=== PATIENT | female | born 1985 | race Caucasian/White ===

== ENCOUNTER → 2024-05-20 12:56 | Outpatient (REF) | payer BC, SELFPAY | LOC: HWRAD 12:56 | PROVIDERS: ATTENDING PHYSICIAN Nurse Practitioner Family | DX: N93.9 Abnormal uterine and vaginal bleeding, unspecified (principal) | CPT/HCPCS: 76830; 76856 ==

== ENCOUNTER → 2024-06-19 10:23 | Outpatient (REF) | payer BC, SELFPAY | LOC: HWRAD 10:23 | PROVIDERS: ATTENDING PHYSICIAN Nurse Practitioner Family | DX: N93.9 Abnormal uterine and vaginal bleeding, unspecified (principal) | CPT/HCPCS: 76830; 76856 ==

== ENCOUNTER 2024-07-21 06:26 | Day surgery (SDC) | payer BC, SELFPAY ==
[2024-07-16 11:01] LABS: % Basophils 0.5 % (0-2); % Eosinophils 2.7 % (0-6); % Immature Granulocytes 0.5 % (0-0.5); % Monocytes 7.8 % (1.7-9.3); % Neutrophils 55.5 % (42.2-75.2); Absolute Eosinophils 0.2 10^3/uL (0-0.7); Absolute Lymphocytes 2.2 10^3/uL (1.2-3.4); Absolute Monocytes 0.5 10^3/uL (0.1-0.6); Absolute Neutrophils 3.6 10^3/uL (1.4-6.5); Hematocrit 38.9 % (37.0-47.0); Hemoglobin 13.6 g/dL (12.0-16.0); Mean Corpuscular Hgb 30.2 pg (27.0-31.0); Mean Corpuscular Volume 86.3 fL (81.0-99.0); Mean Platelet Volume 10.7 fL (7.4-10.4); Nucleated Red Blood Cells % 0 %; Platelet Count 232 10^3/uL (130-400); Red Blood Cell Count 4.51 10^6/uL (4.20-5.40); Red Cell Dist. Width 12.1 % (11.5-14.5); White Blood Cell Count 6.6 10^3/uL (4.8-10.8)
[2024-07-16 11:28] LABS: Blood Urea Nitrogen 14 mg/dl (7-17); Calcium 9.6 mg/dl (8.4-10.2); Carbon Dioxide 25 mmol/L (22-30); Chloride 104 mmol/L (98-107); Glucose 95 mg/dl (70-99); Potassium 4.9 mmol/L (3.5-5.1); Sodium 139 mmol/L (135-145); eGFR > 60.00
[2024-07-16 11:42] LABS: Beta HCG Quantitative < 2.39 mIU/ml
[2024-07-21 13:23] VITALS: BMI 27.7
[2024-07-21 13:25] VITALS: BMI 27.7
[2024-07-21 13:26] VITALS: BP 128/88
[2024-07-21] MEDS: TYLENOL 1000 MG PO (13:30)
[2024-07-21] MEDS: NEURONTIN 300 MG PO (13:30)
[2024-07-21] MEDS: NORMOSOL-R/PLASMALYTE-A 1000 IV (13:55)
[2024-07-21 16:22] VITALS: BP 112/71; BP_SYST 12
[2024-07-21 16:37] VITALS: BP 114/79; BP_SYST 14
[2024-07-21 16:52] VITALS: BP 117/67; BP_SYST 16
[2024-07-21 16:55] VITALS: BP 112/80
[2024-07-21] MEDS: MOTRIN 600 MG PO (17:22)
[2024-07-21 17:30] VITALS: BP 128/83
== END 2024-07-21 17:50 | disposition home or self-care (01) ==
LOC: SDS 06:26
PROVIDERS: ATTENDING PHYSICIAN Obstetrics & Gynecology
DX: D25.0 Submucous leiomyoma of uterus (principal); N93.8 Other specified abnormal uterine and vaginal bleeding; F12.90 Cannabis use, unspecified, uncomplicated
CPT/HCPCS: 58561; 88305; 36415; 80048; 84702; 85025; 86850; 86900; 86901

== ENCOUNTER → 2025-02-04 09:58 | Outpatient (REF) | payer BC, SELFPAY | LOC: HWRAD 09:58 | PROVIDERS: ATTENDING PHYSICIAN Nurse Practitioner Family | DX: N83.209 Unspecified ovarian cyst, unspecified side (principal) | CPT/HCPCS: 76830; 76856 ==

== ENCOUNTER 2025-06-04 15:16 | Emergency (ER) | payer BC, SELFPAY ==
[2025-06-04 15:17] VITALS: BP 131/90
[2025-06-04 15:46] LABS: Hematocrit 39.9 % (37.0-47.0); Hemoglobin 13.8 g/dL (12.0-16.0); Mean Corp Hgb Conc. 34.6 g/dL (33.0-37.0); Mean Corpuscular Volume 85.4 fL (81.0-99.0); Nucleated Red Blood Cells % 0 %; Platelet Count 215 10^3/uL (130-400); Red Cell Dist. Width 12.0 % (11.5-14.5)
[2025-06-04 15:47] LABS: Urine Character Clear (Clear)
[2025-06-04 16:01] LABS: Urine Squamous Cell >30 /LPF (Few)
[2025-06-04 16:03] LABS: Urine White Cell 0-2 /HPF (0-5)
[2025-06-04 16:37] VITALS: BMI 27.4
[2025-06-04 16:39] VITALS: BP 122/90
[2025-06-04 17:08] LABS: HCG, Serum Qualitative Screen Negative
[2025-06-04 17:18] LABS: ALT (SGPT) 13 U/L (0-35); AST (SGOT) 22 U/L (14-36); Albumin 4.4 g/dl (3.5-5.0); Alkaline Phosphatase 56 U/L (38-126); Blood Urea Nitrogen 14 mg/dl (7-17); Calcium 9.8 mg/dl (8.4-10.2); Carbon Dioxide 28 mmol/L (22-30); Chloride 106 mmol/L (98-107); Estimated Creatinine Clearance 93 ml/min; Glucose 114 mg/dl (70-99); Lipase 117 U/L (23-300); Potassium 4.8 mmol/L (3.5-5.1); Sodium 137 mmol/L (135-145); Total Protein 7.1 g/dl (6.3-8.2); eGFR > 60.00
[2025-06-04 17:42] VITALS: BP 135/93
[2025-06-04 18:52] VITALS: BP 112/84
--- NOTE | 2025-06-04 19:05 | ED.GENMED ---
History of Present Illness
General
Chief Complaint: Abdominal Pain
Time Seen by Provider: 06/04/25 16:33
History of Present Illness
History of Present Illness:
40-year-old female presents the emergency department for evaluation of intermittent upper abdominal pain for the past several weeks. No obvious provoking or palliating factors. Episodes of pain last for several minutes and are severe before
improving. Has been able to eat without difficulty. Does not take any NSAIDs routinely and denies tobacco or frequent alcohol use. No prior abdominal surgical history. Has a scheduled GI appointment next week
Review of Systems
Review of Systems
Allergies reviewed?: Yes
All Other Systems: ROS reviewed and negative except as documented in HPI and ROS
Phy Exam
Physical Exam
Physical Exam:
GEN: Well appearing, NAD, WDWN
HEENT: Oral mucosa moist, no scleral icterus
Cardiac: Regular rate
Lung: No respiratory distress, no tachypnea
Abdomen: Soft, grossly nontender
MSK: No gross deformity or injuries
Skin: Good color, no pallor or jaundice, no rashes
Neuro: AO x3, moves all extremities freely
Psych: Calm, cooperative
Course
Orders/Labs/Results
Orders:
Orders
06/04/25 15:22
Test Result ONCE
06/04/25 15:33
Complete Blood Count/With Diff Urgent
Urinalysis Reflex To Culture Urgent
Date Specimen was Collected: 06/04/25
Time Specimen was Collected: 15:22
Urine Microscopic Reflex Cult Urgent
06/04/25 16:46
Comprehensive Metabolic Panel Urgent
HCG, Serum Qualitative Screen Urgent
Lipase Urgent
06/04/25 17:10
US Abdomen Complete/Upper Urgent
Comment:
Reason For Exam: epigastric/RUQ pain
Abnormal Lab Results
06/04/25 06/04/25
15:33 16:46
Absolute Neuts (auto) 7.3 H 10^3/uL
(1.4-6.5)
Glucose 114 H mg/dl
(70-99)
Ur Occult Blood Reflex 2+ A
(Negative)
Urine RBC 3-6 A /HPF
(0-2)
Urine Albumin (Reflex) 1+ A
(Neg - Trace)
06/04/25 15:33
06/04/25 16:46
Vital Signs
Initial and Last Documented VS:
Initial Vital Signs
Temp Pulse Resp BP Pulse Ox
98.3 F 75 16 131/90 100
06/04/25 15:17 06/04/25 15:17 06/04/25 15:17 06/04/25 15:17 06/04/25 15:17
Last Documented Vital Signs
Temp Pulse Resp BP Pulse Ox
98.3 F 72 17 112/84 99
06/04/25 15:17 06/04/25 18:52 06/04/25 18:52 06/04/25 18:52 06/04/25 19:05
MDM/Problems Addressed
MDM/Problems Addressed:
Labs and ultrasound reassuring. Etiology is not clear however given intermittent upper abdominal pain we will treat as potential peptic ulcer disease although she does not have any clear postprandial symptoms. Will trial Carafate and PPIs
*Pulse Oximetry
SaO2: 99
Oxygen Mode of Delivery: Room air
Patient hypoxic: no
*Critical Care Note
Total Time (30-74mins, 75-104mins- exclusive of procedures): Not Applicable
ED Attending Note
-
Portions of this chart may have been created with voice recognition software.� Occasional wrong word or��sound alike� substitutions may have occurred due to the inherent limitations of voice recognition software.
Discharge Plan
Departure
Patient Disposition: Home (Routine Discharge)
Date of Disposition: 06/04/25
Time of Disposition: 19:05
Patient with high blood pressure during this ER visit?: No
Discharge Problem:
Acute upper abdominal pain
Instructions: Abdominal Pain
Prescriptions:
New
pantoprazole 40 mg tablet,delayed release (DR/EC)
40 mg PO DAILY Qty: 14 0RF
sucralfate [Carafate] 1 gram tablet
1 g PO ACHS Qty: 30 0RF
No Action
Lo Loestrin Fe 1 mg-10 mcg (24)/10 mcg (2) Tablet
1 tab PO DAILY
Referrals:
NONE,* [Family Provider, Internal Medicine]
Interventions
Interventions:
*Risk Screen - Suicide Last Done: 06/04/25 15:17
*General Assessment Last Done: 06/04/25 16:38
*Neglect/Abuse Screening Last Done: 06/04/25 15:17
*ED- Fall Risk Assessment Last Done: 06/04/25 16:38
*ED COVID-19 Vaccine History Last Done: 06/04/25 16:38
*Nursing Disposition Last Done: 06/04/25 19:31
IP-Vjputy-Gfqajnmtkw Assessment Last Done: 06/04/25 16:40
Discharge Date and Time
Discharge Date/Time: 06/04/25 19:31
Print Language: [place]
== END 2025-06-04 19:31 | disposition home or self-care (01) ==
LOC: EMR 15:16
PROVIDERS: Emergency Medicine; EMERGENCY PHYSICIAN Emergency Medicine
DX: R10.10 Upper abdominal pain, unspecified (principal)
CPT/HCPCS: 99284; 76700; 80053; 81003; 81015; 83690; 84703; 85025

== ENCOUNTER 2025-06-12 06:18 | Day surgery (SDC) | payer BC, SELFPAY | END 2025-06-12 13:05 | disposition home or self-care (01) | LOC: GI 06:18 | PROVIDERS: ATTENDING PHYSICIAN Internal Medicine Gastroenterology | DX: K29.70 Gastritis, unspecified, without bleeding (principal); K22.89 Other specified disease of esophagus; K44.9 Diaphragmatic hernia without obstruction or gangrene; R10.10 Upper abdominal pain, unspecified | CPT/HCPCS: 43239; 88305; 88342 ==